=== PATIENT | female | born 1965 | race Caucasian/White ===

== ENCOUNTER → 2016-10-14 | Outpatient (CLI) | payer BC ==
[~2016-10-14] VITALS: Ht 160 cm; Wt 77.1 kg
[2016-10-14 08:40] VITALS: BP 144/79
--- NOTE | 2016-10-15 14:39 | PATHOLOGY ---
PATHOLOGY REPORT * * * * * * * * FINAL DIAGNOSIS: Breast tissue, left breast mass needle biopsy: - Fibroadenoma, containing foci of sclerosing adenosis. COMMENT: There is no evidence of malignancy. (JPM:; d/t: 10/15/16) REPORT ELECTRONICALLY SIGNED BY: Saúl Sears M.D. DATE/TIME: 10/15/2016 14:38 * * * * * * * * GROSS PATHOLOGY: Received in formalin labeled "Kaylynn Boyd, left breast," are multiple needle cores of yellow-keller fibrofatty tissue measuring 3.0 x 2.4 x 0.4 cm in aggregate dimensions. The tissue is submitted in its entirety in cassette A1 and A2. The cold ischemic time is 5 minutes. The total formalin fixation time is 12 hours and 11 minutes. (CAA; 10/14/2016) INITIAL CPT CODE(S): A; 68215 Professional services performed [place] [address] Technical services performed by [facility] at [address] [place] [address]. SPECIMEN(S) RECEIVED: A.Left breast mass CLINICAL HISTORY: Left breast mass PATIENT: KAYLYNN BOYD /AGE: 1005/28/1965 (Age: 51) PATIENT #: [id number] ALT CASE #: SPECIMEN COLLECTION DATE: 10/14/2016 SPECIMEN RECEIVED DATE: 10/14/2016 [facility] - [address] [place] [address] - PHONE: [phone] * * * END OF REPORT * * *
--- NOTE | 2016-10-18 08:00 | RAD ---
Ultrasound-guided vacuum-assisted left breast biopsy, 10/14/2016: History: Suspicious breast nodule Previous studies demonstrated a suspicious nodule in the upper outer quadrant left breast. Under local anesthesia, aseptic conditions and sonographic guidance the Tagrule biopsy instrument was passed into the posterior aspect of this nodule via an inferolateral approach. Multiple 12-gauge vacuum-assisted core samples were obtained. A biopsy marker was deposited at the biopsy site. The biopsy instrument was then removed and hemostasis obtained. Two-view postprocedural mammograms were then obtained to document position of the biopsy marker. It lies along the inferomedial margin of the biopsied lesion. The patient tolerated the procedure well and left the department in good condition. The subsequent pathology report indicated the presence of a fibroadenoma. This is considered to be concordant finding.
== END | disposition home or self-care (01) ==
LOC: US 07:57 → EDUNIT# 08:30
PROVIDERS: ATTEND Surgery
DX: N63 Unspecified lump in breast (principal)
CPT/HCPCS: 19081; 76942; C1713; G0206; 88305; 77065